=== PATIENT | male | born 1960 | race Hispanic/Latino ===

== ENCOUNTER 2021-01-09 10:03 | Outpatient (AMBR) | payer OTHER, MEDICAID, SELFPAY ==
--- NOTE | 2021-01-02 10:06 | PT.OIERPT ---
PT OP Initial Eval Patient Information Visit Reasons: low back pain Medical Diagnosis: M54.5, M54.6 Treatment Dx #1: LBP Date of Onset: 4 weeks ago Initial Assessment Subjective Pt is 60 yr old beninese speaking male who reports onset of severe R sided lower back pain that radiates down the R LE and is 5/10. He points to the R lateral flank lower ribs as site of pain. Since taking mm relaxors the pain has decreased in the lateral lower rib region but the belt line pain is variable. He is not working but had been working in the [employer]. PLOF: Pt PMH: DM, high cholesterol Imaging: with provider Pt goal: to decrease the LBP Objective Trunk ArOM: B SB 18 with pain L>R Extension: 20% with pain around L4-5 on R Flexion: 4 from floor without LBP B rotation: 60% with pain to the L R SLR ROM: 70 deg with posterior knee neural tension, LBP LE strength: B hamstrings: 4-/5 Quads 4-/5 Hip abd/add 4-/5 TTP: moderate paraspinals L4-5 and diffusely L3-S1 on R Neuro: R SLR: positive Assessment Pt presents with trunk extension sensitivity and overlying myofascial pain and spasming around L4-5 on R. Pt has lumbar extensor atrophy and pain with prolonged standing. Pt has poor/fair pelvic kinematics and difficulty finding neutral spine. These findings are consistent with lower lumbar disc irritation/dysfunction. Pt requires skilled therapy in order to decrease pain and improve standing tolerance and has fair rehab potential. Short Term and Student Services Director Goals 1. Ind with HEP 2. Improved standing tolerance to 30 minutes with <=4/10 LBP 3. Pt will improve ambulatory distance to 2 [address] 4. Pt will squat x15 with lumbar lordosis and no increase in LBP Treatment Plan 90 day POC in order to complete visits. Pt requires skilled therapy in order to increase strength, decrease pain and address aforementioned impairments. Rx may consist of Therex, Manual therapy, Neuromuscular re-education. Modalities as indicated-moist heat packs, ice packs, mechanical traction, estim Frequency and Duration 2x a week for 6 weeks Certification Dates: 01/02/21 to 04/02/21 Office Procedures PT Treatments PT Date of Service: 01/02/21 OP PT Eval Mod Complex 30 minutes: Yes
--- NOTE | 2021-01-07 15:50 | PTNOTE_ITS ---
PT Outpatient Daily Note Date of Service: 01/07/21 OP Daily Note Visit Reasons: low back pain Outpatient Physical Therapy Treatment Date: 01/07/21 Subjective: LBP 12/21 today Objective: See F/S for therex MT: STM L/S with Graston x8' L1-5 MHP L/S during supine therex Assessment: Moderate tissue irritabilty of L/S paraspinals with MT today. Pt was able to do supine L/S stabilization therex with some R knee pain. Plan: Continue per POC Office Procedures PT Treatments PT Date of Service: 01/02/21 OP PT Eval Mod Complex 30 minutes: Yes PT Treatments PT Date of Service: 01/07/21 Therapeutic Exercise 15 minutes: Yes Manual Surgical Oncologist 15 minutes: Yes
--- NOTE | 2021-01-09 11:10 | PT.ODAYNRPT ---
PT Outpatient Daily Note Date of Service: 01/09/21 OP Daily Note Visit Reasons: low back pain Outpatient Physical Therapy Treatment Date: 01/09/21 Subjective: Pt reports same as previous visit. Pt reported less pain at lower back at end of session. Objective: See flow chart for therex. MT: STM to L/S using Grastons x 8mins. Mechanical Traction: 40lbs x 7mins. Assessment: Pt tolerated supine therex w/ MHP well. Pt able to complete TG w/ mod complaints to R knee. Pt had good response and reduced pain to MT and mechanical traction. Plan: Cont POC. Length of Time (minutes) of Treatment: 30 Minutes Office Procedures PT Treatments PT Date of Service: 01/02/21 OP PT Eval Mod Complex 30 minutes: Yes PT Treatments PT Date of Service: 01/09/21 Therapeutic Exercise 15 minutes: Yes Manual General Maintenance Technician 15 minutes: Yes PT Treatments PT Date of Service: 01/07/21 Therapeutic Exercise 15 minutes: Yes Manual General Maintenance Technician 15 minutes: Yes
== END 2021-01-10 23:59 | disposition home or self-care (01) ==
PROVIDERS: PCP Physician Assistant; Referring Provider Physician Assistant; Visit Provider Physician Assistant
DX: M54.5 Low back pain (principal); M54.6 Pain in thoracic spine; M62.830 Muscle spasm of back; E11.9 Type 2 diabetes mellitus without complications
CPT/HCPCS: 97110; 97140; 97162

== ENCOUNTER 2021-01-30 11:03 | Outpatient (AMBR) | payer OTHER, MEDICAID, SELFPAY ==
--- NOTE | 2021-01-14 11:27 | PTNOTE_ITS ---
PT Outpatient Daily Note Date of Service: 01/14/21 OP Daily Note Visit Reasons: low back pain Outpatient Physical Therapy Treatment Date: 01/14/21 Subjective: Pt reports that he is feeling better today. Objective: See flow chart for therex. MT: STM w/ graston x 8 mins. Mechanical Traction: 40lbs x 7 mins Assessment: Pt tolerated supine therex well w/ MHP. Pt had good response to STM and Mechanical traction. Tissue tightness on R side of T/S and L/S. Plan: Cont POC. Length of Time (minutes) of Treatment: 30 Minutes Office Procedures PT Treatments PT Date of Service: 01/14/21 Therapeutic Exercise 15 minutes: Yes Manual Research And Development Director 15 minutes: Yes
--- NOTE | 2021-01-17 12:33 | PTNOTE_ITS ---
PT Outpatient Daily Note Date of Service: 01/17/2021 OP Daily Note Visit Reasons: low back pain Outpatient Physical Therapy Treatment Date: 01/17/21 Subjective: pt states his pain feels better with heat and exercise. Objective: see flow sheet. Mechanical traction L/S x10' Assessment: the supine exercises were performed under heat and he tolerated well. he had no complaints. he demonstrated good mobility and core contraction as he held SKTC for a few seconds and alternating LE. followed by the traction. he denied increase in back pain after a few mins on traction. Plan: continue POC per PT. Office Procedures PT Treatments PT Date of Service: 01/14/21 Therapeutic Exercise 15 minutes: Yes Manual Transit Planning Director 15 minutes: Yes PT Treatments PT Date of Service: 01/17/21 Traction Mechanical: Yes Therapeutic Exercise 15 minutes: Yes
--- NOTE | 2021-01-22 11:25 | PT.ODAYNRPT ---
PT Outpatient Daily Note Date of Service: 01/22/21 OP Daily Note Visit Reasons: low back pain Outpatient Physical Therapy Treatment Date: 01/22/21 Subjective: Pt bhutanese speaking reports he is feeling little better and has little pain today. Objective: See flow chart for therex. MT: STM w/ graston x 10mins. Mechanical Traction: L/S x 10 mins. Assessment: Pt tolerated therex w/ minimal complaints of pain to mid back. Pt had good response to MT and mechanical traction. Plan: Cont POC per PT. Length of Time (minutes) of Treatment: 30 Minutes Office Procedures PT Treatments PT Date of Service: 01/14/21 Therapeutic Exercise 15 minutes: Yes Manual Concrete Mixer Loader Truck Mounted 15 minutes: Yes PT Treatments PT Date of Service: 01/17/21 Traction Mechanical: Yes Therapeutic Exercise 15 minutes: Yes PT Treatments PT Date of Service: 01/22/21 Therapeutic Exercise 15 minutes: Yes Manual Concrete Mixer Loader Truck Mounted 15 minutes: Yes
--- NOTE | 2021-01-24 13:18 | PTNOTE_ITS ---
PT Outpatient Daily Note Date of Service: 01/24/2021 OP Daily Note Visit Reasons: low back pain Outpatient Physical Therapy Treatment Date: 01/24/21 Subjective: pt states his back is effected from an injury he had several years ago falling from a horse. pt states his back pain is constant. Objective: see flow sheet. Assessment: pt demonstrated good mobility with ther ex. he is able to maintain his knee to chest as a stretch for BLE. he does not get up from bed the correct technique which could be increasing his pain as well. pt needs to educated on the log roll for next visit. while on the traction pt tolerates well and denies pain as it does the opposite and helps with his pain. Plan: continue POC per PT. Length of Time (minutes) of Treatment: 30 Minutes Office Procedures PT Treatments PT Date of Service: 01/14/21 Therapeutic Exercise 15 minutes: Yes Manual Disc Pad Grinding Machine Feeder 15 minutes: Yes PT Treatments PT Date of Service: 01/24/21 Therapeutic Exercise 30 minutes: Yes PT Treatments PT Date of Service: 01/17/21 Traction Mechanical: Yes Therapeutic Exercise 15 minutes: Yes PT Treatments PT Date of Service: 01/22/21 Therapeutic Exercise 15 minutes: Yes Manual Disc Pad Grinding Machine Feeder 15 minutes: Yes
--- NOTE | 2021-01-30 13:36 | PTNOTE_ITS ---
PT Outpatient Daily Note Date of Service: 01/30/21 OP Daily Note Visit Reasons: low back pain Outpatient Physical Therapy Treatment Date: 01/30/21 Subjective: Pt feels LBp relief for about 2-3 days after therapy visits and then pain returns. Objective: See F/S for therex MT: STM L/S with Graston x10' Assessment: Temporary relief with therapy visits of LBP. Plan: Reassess Length of Time (minutes) of Treatment: 30 Minutes Office Procedures PT Treatments PT Date of Service: 01/14/21 Therapeutic Exercise 15 minutes: Yes Manual Cosmetic Assembler 15 minutes: Yes PT Treatments PT Date of Service: 01/24/21 Therapeutic Exercise 30 minutes: Yes PT Treatments PT Date of Service: 01/30/21 Therapeutic Exercise 15 minutes: Yes Manual Cosmetic Assembler 15 minutes: Yes PT Treatments PT Date of Service: 01/17/21 Traction Mechanical: Yes Therapeutic Exercise 15 minutes: Yes PT Treatments PT Date of Service: 01/22/21 Therapeutic Exercise 15 minutes: Yes Manual Cosmetic Assembler 15 minutes: Yes
== END 2021-02-10 23:59 | disposition home or self-care (01) ==
PROVIDERS: PCP Physician Assistant; Referring Provider Physician Assistant; Visit Provider Physician Assistant
DX: M54.50 Low back pain, unspecified (principal); M54.6 Pain in thoracic spine; E11.9 Type 2 diabetes mellitus without complications; M62.830 Muscle spasm of back
CPT/HCPCS: 97012; 97110; 97140